=== PATIENT | male | born 1985 | race Caucasian/White ===

== ENCOUNTER 2018-11-02 16:29 | Outpatient (CLI) | payer OTHER ==
[2018-11-02] MEDS ORDERED: GADOBUTROL 10 MMOL/10 ML VIAL ONE (16:38)
[2018-11-02] MEDS ORDERED: GADOBUTROL 10 MMOL/10 ML VIAL IVP ONE (18:06)
--- NOTE | 2018-11-03 13:47 | MRI Report ---
Reason: RECENT ONSET OF HEADACHES OF 3 MONTHS DURATION W/S Procedure Date: 11/02/2018 Accession Number: [id number] / [id number] Procedure: MRI - Brain W/WO CPT Code: FULL RESULT: EXAM: MRI BRAIN WITHOUT AND WITH CONTRAST EXAM DATE: 11/02/2018 05:33 PM. CLINICAL HISTORY: RECENT ONSET OF HEADACHES OF 3 MONTHS DURATION. COMPARISON: None. TECHNIQUE: Multiplanar, multisequence T1-weighted and fluid-sensitive MR sequences of the brain were performed. Sequences optimized for routine evaluation. Other: None. IV Contrast: Without and with 10 mL Gadavist. FINDINGS: Normal brain volume for age. No acute abnormalities such as hemorrhage, stroke or hydrocephalus. No white matter disease. No brain swelling or edema. No intracranial enhancing or space-occupying mass. Contrast opacification of the major dural venous sinuses is present as expected. 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 No other evidence for midline cerebral developmental anomalies. No acute-appearing sinus or mastoid disease. Negligible nonspecific left ethmoid mucosal thickening. No air-fluid level. The major arterial skull base flow voids are present. Symmetric unremarkable appearance of the orbits. No evidence for enhancing mass of the internal auditory canals or in the region of the pituitary fossa. No focal pathologic-appearing marrow signal changes in the skull or clivus. IMPRESSION: 1. No acute abnormality or enhancing mass. 2. Mildly low-lying cerebellar tonsils. 3. Otherwise unremarkable MRI appearance of the brain. [facility]
== END 2018-11-02 16:30 | disposition home or self-care (01) ==
LOC: DI 16:29
PROVIDERS: ATTEND Optometrist
DX: H52.4 Presbyopia (principal); H52.223 Regular astigmatism, bilateral; H52.13 Myopia, bilateral; H57.09 Other anomalies of pupillary function; R51 Headache
CPT/HCPCS: 70553; A9585

== ENCOUNTER 2019-07-09 08:45 | Outpatient (CLI) | payer OTHER ==
--- NOTE | 2019-07-09 14:43 | MRI Report ---
Reason: MONONEUROPATHY Procedure Date: 07/09/2019 Accession Number: [id number] / [id number] Procedure: MRI - Cervical Spine W/O CPT Code: FULL RESULT: EXAM: MRI CERVICAL SPINE WITHOUT CONTRAST EXAM DATE: 07/09/2019 10:12 AM. CLINICAL HISTORY: Mononeuropathy. COMPARISONS: None. TECHNIQUE: Multiplanar, multisequence T1-weighted and fluid-sensitive sequences of the cervical spine without contrast. Other: None. FINDINGS: The craniocervical junction is normal. There are normal signal intensities demonstrated throughout the cervical spinal cord. There is mild desiccation of the disk spaces at C2-C3 through C6-C7. C2-C3: There is no significant disk bulge, central or foraminal stenosis. The facets are normal. C3-C4: There is uncovertebral hypertrophy which produces mild to moderate narrowing of the neural foramina bilaterally. There is no significant central canal stenosis. The facets are normal. C4-C5: There is a small central extrusion of the disk producing a mild central canal stenosis. The remainder of the level is normal. C5-C6: There is a small disk osteophyte complex with a left paracentral extrusion of the disk. There is a mild central canal stenosis. There is mild to moderate narrowing of the left neural foramen and moderate narrowing of the right neural foramen. The facets are normal. C6-C7: There is a broad-based disk osteophyte complex with a left paracentral extrusion of the disk. There is a mild central canal stenosis. The facets are normal. There is moderate to a slightly greater degree of bilateral foraminal stenoses. Recommend correlation for any C7 radicular symptoms. The facets are normal. C7-T1: There is no significant disk bulge, central or foraminal stenosis. The facets are normal. IMPRESSION: 1. There is a mild central canal stenosis from small central extrusion of the disk at C4-C5. 2. There is a small disk osteophyte complex with a left paracentral extrusion of the disk at C5-C6 producing a mild central canal stenosis. 3. There is a broad-based disk osteophyte complex with a left paracentral extrusion of the disk at C6-C7. There is a mild central canal stenosis. There is a moderate to a slightly greater degree of bilateral foraminal stenoses. Recommend correlation for any C7 radicular symptoms.
== END 2019-07-09 08:46 | disposition home or self-care (01) ==
LOC: DI 08:45
PROVIDERS: ATTEND General Practice
DX: M50.221 Other cervical disc displacement at C4-C5 level (principal); M47.812 Spondylosis without myelopathy or radiculopathy, cervical region; M48.02 Spinal stenosis, cervical region
CPT/HCPCS: 72141

== ENCOUNTER 2019-08-10 12:59 | Outpatient (CLI) | payer OTHER ==
[2019-08-10] MEDS ORDERED: BUFFERED LIDOCAINE 10 ML SYRINGE ONE (13:27)
[2019-08-10] MEDS ORDERED: GADOPENTETATE DIMEGLUMINE 5 ML VIAL IVP ONE ×2 (13:28→14:53)
[2019-08-10] MEDS ORDERED: IOTHALAMATE MEGLUMINE 50 ML VIAL ONE (13:28)
[2019-08-10] MEDS ORDERED: IOTHALAMATE MEGLUMINE 50 ML VIAL IVP ONE (14:53)
[2019-08-10] MEDS ORDERED: BUFFERED LIDOCAINE 10 ML SYRINGE IU ONE (14:53)
--- NOTE | 2019-08-11 14:29 | MRI Report ---
Reason: PAIN IN UNSPECIFIED SHOULDER Procedure Date: 08/10/2019 Accession Number: [id number] / [id number] Procedure: MRI - Arthrogram Shoulder LT CPT Code: FULL RESULT: EXAM: LEFT SHOULDER MRI ARTHROGRAM WITH CONTRAST EXAM DATE: 08/10/2019 02:49 PM. CLINICAL HISTORY: Shoulder pain. Decreased range of motion. COMPARISON: None. TECHNIQUE: Multiplanar, multisequence T1-weighted and fluid-sensitive sequences of the shoulder after an arthrographic injection of dilute gadolinium, dictated under a separate exam. Other: None. FINDINGS: Acromioclavicular Region: The acromion is type II. The acromioclavicular joint is unremarkable. There is no contrast or fluid in the subacromial/subdeltoid bursa. Glenohumeral Region: No subluxation. No loose bodies. The articular cartilage is unremarkable. There is a high-grade partial-thickness tear of the inferior glenohumeral ligament. There is a small full-thickness tear of the anterior band of the inferior glenohumeral ligament allowing contrast to abut the quadrilateral space. The superior and middle glenohumeral ligaments appear intact. Bone Marrow: No fracture, marrow edema or bone lesions. Labrum: The labrum is unremarkable. Biceps Tendon: The long head of the biceps tendon and biceps renata are intact. Musculature/Rotator Cuff: There is a 4 mm x 4 mm low-grade partial thickness tear of the anterior humeral surface fibers of supraspinatus. Infraspinatus and subscapularis appear unremarkable. No edema or fatty atrophy. Other: The subcutaneous tissues are unremarkable. IMPRESSION: 1. High-grade partial-thickness tear of the inferior glenohumeral ligament with a small full-thickness component suggesting prior dislocation or subluxation. 2. Small partial-thickness tear of the anterior, humeral surface fibers of supraspinatus. [facility]
--- NOTE | 2019-08-16 13:06 | XRAY Report ---
Reason: PAIN IN UNSPECIFIED SHOULDER Procedure Date: 08/10/2019 Accession Number: [id number] / [id number] Procedure: FL - Arthrogram Needle Placement CPT Code: FULL RESULT: EXAM: LEFT SHOULDER ARTHROGRAPHIC INJECTION WITH FLUOROSCOPIC GUIDANCE EXAM DATE: 08/10/2019 02:00 PM. CLINICAL HISTORY: PAIN IN LEFT SHOULDER. COMPARISON: ARTHROGRAM NEEDLE PLACEMENT 08/10/2019 2:05 PM ARTHROGRAM SHOULDER LT 08/10/2019 2:24 PM. TECHNIQUE: The risks, benefits, and alternatives of the procedure were discussed with the patient. All questions were answered. Written and verbal consent were obtained. The left glenohumeral joint was marked under fluoroscopy and prepped and draped in a sterile manner. Local anesthesia was performed with 1% lidocaine. A 22-gauge needle was then inserted into the glenohumeral joint. 10 mL of a solution containing 25% 1% lidocaine, 25% iodinated contrast, and a 1:200 dilution of gadolinium contrast in sterile saline was then injected. The needle was removed without immediate complication. Other: None. Fluoroscopy Time: 0.1 minute. Number of Images: 4. FINDINGS: Bones and joints: No fracture or subluxation. Injection: Fluoroscopic images demonstrate needle placement and contrast in the left glenohumeral joint. No contrast extravasation outside of the glenohumeral joint. IMPRESSION: Successful fluoroscopically guided arthrographic injection of the left shoulder. [facility]
== END 2019-08-10 13:00 | disposition home or self-care (01) ==
LOC: DI 12:59
PROVIDERS: ATTEND General Practice
DX: S43.492A Other sprain of left shoulder joint, initial encounter (principal); M75.102 Unspecified rotator cuff tear or rupture of left shoulder, not specified as traumatic
CPT/HCPCS: 23350; 73222; 77002; Q9961